=== PATIENT | female | born 1975 ===

== ENCOUNTER 2020-09-04 17:02 | Inpatient (IN) ==
--- NOTE | 2020-09-04 19:55 | Emergency Department Note ---
History of Present Illness General Chief complaint: Illness Stated complaint: Covid Positive, SOB Time Seen by Provider: 09/04/20 19:32 Source: patient Mode of arrival: ambulatory Limitations: no limitations History of Present Illness Provider complaint: Shortness of breath This is a 45-year-old female who presents to the ED with a chief complaint of shortness of breath. The patient was seen 3 days ago by myself as well. The patient reports increased shortness of breath since she was seen last time. She also reports a dry cough and some dizziness. She does have a history of asthma. She was diagnosed with Covid 6 days ago and has had symptoms for about 9 days. She is currently taking prednisone 50 mg daily as well as a Z-Wayne and she has nebulizers at home and has been using them regularly. The patient reports that she did not have a fever a couple of days ago but yesterday and today she did have fevers as high as 101.5. She states that she is lost her smell but her taste is still mostly present. She denies any nausea, vomiting or diarrhea. Denies any pain or swelling in the legs. She works as a internal medicine physician locally. Home Medications Medication Instructions Recorded Confirmed Type albuterol sulfate 1 inh INHALATION Q4H PRN 09/01/20 09/04/20 History ascorbic acid (vitamin C) [Vitamin 100 mg PO QDD 09/01/20 09/04/20 History C] cetirizine [Zyrtec] 10 mg PO QAM 09/01/20 09/04/20 History fluticasone propion-salmeterol 1 inh INHALATION BID 09/01/20 09/04/20 History [Advair Diskus] montelukast [Singulair] 10 mg PO HS 09/01/20 09/04/20 History multivitamin 1 tab PO QDD 09/01/20 09/04/20 History zinc 0 mg PO QDD 09/01/20 09/04/20 History acetaminophen [Tylenol Extra 500 mg PO Q6H PRN 09/04/20 09/04/20 History Strength] azithromycin 250 mg PO .DAILY/UD 09/04/20 09/04/20 History prednisone 0 mg PO .DAILY/UD 09/04/20 09/04/20 History Allergies Allergy/AdvReac Type Severity Reaction Status Date / Time shrimp Allergy Rash Unverified 09/04/20 23:31 Past Med/Surg History Social History Smoking Status: Never smoker Preferred Language: Albanian Feels Safe at Home: Yes Review of Systems A total of 10 systems reviewed and were otherwise negative Physical Exam Vital Signs Vital Signs - 24 hr 09/04/20 17:20 09/04/20 20:28 09/04/20 20:30 Temperature 37.4 C Temperature Source Temporal Artery Scan Pulse Rate 87 79 81 Pulse Rate [Right Finger] Pulse Rate from SpO2 Sensor 81 81 Pulse Rhythm [Right Finger] Respiratory Rate 16 21 16 Respiratory Effort / Characteristics Non-Labored Respiratory Depth Normal Blood Pressure 132/88 Blood Pressure [Left Arm] Blood Pressure Mean 102 Blood Pressure Mean [Left Arm] Pulse Oximetry 97 97 97 Oxygen Delivery Method Room Air Sepsis Recent Fever Within 48 Hours Yes Sepsis New/Unexplained Change in Mental Status No Sepsis Action Taken by Nursing No Action Required 09/04/20 21:00 09/04/20 21:24 09/04/20 21:30 Temperature Temperature Source Pulse Rate 72 75 78 Pulse Rate [Right Finger] Pulse Rate from SpO2 Sensor 73 79 78 Pulse Rhythm [Right Finger] Respiratory Rate 18 21 23 Respiratory Effort / Characteristics Respiratory Depth Blood Pressure 128/80 125/76 Blood Pressure [Left Arm] Blood Pressure Mean 95 95 Blood Pressure Mean [Left Arm] Pulse Oximetry 98 97 97 Oxygen Delivery Method Sepsis Recent Fever Within 48 Hours Sepsis New/Unexplained Change in Mental Status Sepsis Action Taken by Nursing 09/05/20 00:36 Temperature 37.2 C Temperature Source Oral Pulse Rate Pulse Rate [Right Finger] 68 Pulse Rate from SpO2 Sensor Pulse Rhythm [Right Finger] Regular Respiratory Rate 16 Respiratory Effort / Characteristics Respiratory Depth Normal Blood Pressure Blood Pressure [Left Arm] 135/78 Blood Pressure Mean Blood Pressure Mean [Left Arm] 97 Pulse Oximetry 96 Oxygen Delivery Method Room Air Sepsis Recent Fever Within 48 Hours Sepsis New/Unexplained Change in Mental Status Sepsis Action Taken by Nursing CONSTITUTIONAL/VITAL SIGNS: Reviewed / noted above. GENERAL: Non-toxic in appearance. INTEGUMENTARY: Warm, dry, and Radium. HEAD: Normocephalic. EYES: without scleral icterus or trauma. ENT/OROPHARYNX: No complaints. LYMPHADENOPATHY/NECK: Is supple. RESPIRATORY: Lungs clear and equal. End expiratory wheezing similar to or slightly better than when I examined her previously. CARDIOVASCULAR: Regular rate and rhythm. GI/ABDOMEN: No complaints. EXTREMITIES: No pain or swelling in the legs. NEUROLOGICAL: Intact without focal deficits. PSYCHIATRIC: normal affect. MUSCULOSKELETAL: Normally developed with good muscle tone. TRIAGE NURSING DOCUMENTATION REVIEWED. Course Administered Medications Discontinued Medications Dexamethasone Sodium Phosphate (6 mg/ Syringe) 1.5 mls @ 1 mls/min IV NOW STA Stop: 09/04/20 23:59 Last Admin: 09/05/20 00:31 Dose: 1 mls/min Documented by: [id number] Ioversol (Optiray 320 125ml) 119 ml IV ONCE ONE Stop: 09/04/20 21:57 Last Admin: 09/04/20 22:41 Dose: Not Given Documented by: [id number] Ioversol (Optiray 320 125ml) 119 ml IV ONCE ONE Stop: 09/04/20 22:07 Last Admin: 09/04/20 22:06 Dose: 119 ml Documented by: [id number] Medical Decision Making Differential Diagnosis The differential was considered includes acute myocardial infarction, acute coronary syndrome, myocarditis, pericarditis, pericardial effusions /tamponad, esophageal perforation, pulmonary embolism, pneumonia, pneumothorax, cardiomyopathy, congestive heart, anemia , COPD/asthma exacerbation. Medical Records Attestation: I reviewed the patient's medical records. Home Medications Current Medication List: was personally reviewed by me Laboratory Data Attestation: I reviewed the patient's lab results. Result diagrams: 09/04/20 20:08 09/04/20 20:08 Lab Results 09/04/20 09/04/20 09/04/20 Range/Units 20:08 20:08 20:08 WBC 6.24 (4.8-10.8) K/uL RBC 4.02 L (4.2-5.4) M/uL Hgb 13.0 (12.0-16.0) g/dL Hct 40.0 (37-47) % MCV 99.5 (80-100) fL MCH 32.3 (25-34) pg MCHC 32.5 (32-36) g/dL RDW Std Deviation 46.5 H (36.4-46.3) fL RDW Coeff of Marcellus 12.7 (11.5-14.5) % Plt Count 222 (130-400) K/uL MPV 11.2 H (7.4-10.4) fL Immature Gran % (Auto) 0.6 % Neut % (Auto) 87.3 % Lymph % (Auto) 7.9 % [place] % (Auto) 4.2 % Eos % (Auto) 0.0 % Baso % (Auto) 0.0 % Neut # (Auto) 5.45 (1.4-6.5) K/uL Lymph # (Auto) 0.49 L (1.2-3.4) K/uL [place] # (Auto) 0.26 (0.11-0.59) K/uL Eos # (Auto) 0.00 (0-0.5) K/uL Baso # (Auto) 0.00 (0-0.2) K/uL Immature Gran # (Auto) 0.04 H (0.00-0.02) K/uL ESR 26 H (0-21) mm/hr PT 9.7 (9.0-12.0) Seconds INR 0.9 (0.9-1.1) APTT 26.7 (21.0-31.0) Seconds PTT Ratio 1.0 D-Dimer < 190 (0-500) ug/L FEU Sodium (136-145) mmol/L Potassium (3.5-5.1) mmol/L Chloride (98-107) mmol/L Carbon Dioxide (21-32) mmol/L Anion Gap (3-11) BUN (7-18) mg/dl Creatinine (0.6-1.2) mg/dl Est Cr Clr Drug Dosing Est GFR ( Amer) Est GFR (Non-Af Amer) BUN/Creatinine Ratio (10-20) Glucose (70-99) mg/dl Calcium (8.5-10.1) mg/dl Magnesium (1.8-2.4) mg/dl Ferritin (8-388) ng/ml Total Bilirubin (0.2-1) mg/dl AST (15-37) U/L ALT (12-78) U/L Alkaline Phosphatase (45-117) U/L Lactate Dehydrogenase (84-246) U/L Troponin I (0-0.045) ng/ml C-Reactive Protein (0-0.29) mg/dl NT-Pro-B Natriuret Pep (0-450) pg/ml Total Protein (6.4-8.2) gm/dl Albumin (3.4-5.0) gm/dl Globulin (2.5-4.0) gm/dl Albumin/Globulin Ratio (0.9-2) Procalcitonin (0-0.5) ng/ml 09/04/20 09/04/20 09/04/20 Range/Units 20:08 20:08 20:08 WBC (4.8-10.8) K/uL RBC (4.2-5.4) M/uL Hgb (12.0-16.0) g/dL Hct (37-47) % MCV (80-100) fL MCH (25-34) pg MCHC (32-36) g/dL RDW Std Deviation (36.4-46.3) fL RDW Coeff of Marcellus (11.5-14.5) % Plt Count (130-400) K/uL MPV (7.4-10.4) fL Immature Gran % (Auto) % Neut % (Auto) % Lymph % (Auto) % [place] % (Auto) % Eos % (Auto) % Baso % (Auto) % Neut # (Auto) (1.4-6.5) K/uL Lymph # (Auto) (1.2-3.4) K/uL [place] # (Auto) (0.11-0.59) K/uL Eos # (Auto) (0-0.5) K/uL Baso # (Auto) (0-0.2) K/uL Immature Gran # (Auto) (0.00-0.02) K/uL ESR (0-21) mm/hr PT (9.0-12.0) Seconds INR (0.9-1.1) APTT (21.0-31.0) Seconds PTT Ratio D-Dimer (0-500) ug/L FEU Sodium 140 (136-145) mmol/L Potassium 4.1 (3.5-5.1) mmol/L Chloride 106 (98-107) mmol/L Carbon Dioxide 28 (21-32) mmol/L Anion Gap 6.0 (3-11) BUN 15 (7-18) mg/dl Creatinine 0.64 (0.6-1.2) mg/dl Est Cr Clr Drug Dosing Not Reportable Est GFR ( Amer) 125.8 Est GFR (Non-Af Amer) 108.5 BUN/Creatinine Ratio 23.8 H (10-20) Glucose 200 H (70-99) mg/dl Calcium 8.9 (8.5-10.1) mg/dl Magnesium 2.1 (1.8-2.4) mg/dl Ferritin 141.6 (8-388) ng/ml Total Bilirubin 0.3 (0.2-1) mg/dl AST 21 (15-37) U/L ALT 33 (12-78) U/L Alkaline Phosphatase 51 (45-117) U/L Lactate Dehydrogenase 177 (84-246) U/L Troponin I < 0.015 (0-0.045) ng/ml C-Reactive Protein 2.13 H (0-0.29) mg/dl NT-Pro-B Natriuret Pep 65 (0-450) pg/ml Total Protein 7.1 (6.4-8.2) gm/dl Albumin 3.3 L (3.4-5.0) gm/dl Globulin 3.8 (2.5-4.0) gm/dl Albumin/Globulin Ratio 0.9 (0.9-2) Procalcitonin < 0.05 (0-0.5) ng/ml Imaging Data Radiologist's Impression: CT scan of the chest: Per radiology stat rad: Scattered areas of faint groundglass infiltrate with rounded margins in the mid and lower lungs bilaterally consistent with mild COVID-19 pneumonia. ECG Data Attestation: I personally reviewed and interpreted this ECG as follows: Indication: + SOB/dyspnea Rate (beats per minute): 71 Rhythm: + normal sinus ECG Intervals/blocks: + Normal QT-c ECG ST segments: no ST elevation ECG Findings: no PVCs MDM Narrative The patient is a known Covid positive patient for at least the past 9 days with symptoms. She presents with increased shortness of breath today as well as a dry cough and some dizziness and states that her symptoms are worse than her previous visit 3 days ago. She has had some fevers in the past couple of days as detailed above. Her vital signs here are normal. Pulse ox was 97% on room air. Exam revealed some mild end expiratory scattered wheezes bilaterally. Twelve-lead EKG shows a normal sinus rhythm at a rate of 71 without acute injury pattern or ectopy. CBC did not show anemia or leukocytosis. Sed rate was elevated at 26. D-dimer was negative. Chemistry panel showed a glucose of 200. Otherwise unremarkable. Troponin was negative. C-reactive protein was 2.13. Procalcitonin was negative. CT scan of the chest:Reveals findings consistent with mild COVID-19 pneumonia with bilateral groundglass infiltrates in the lower lobes.The patient will be seen by the hospitalist for further evaluation and care. Impression & Plan COVID-19, Bilateral interstitial pneumonia Discharge Plan Visit Data Chief Complaint: Illness Stated Complaint: Covid Positive, SOB ED Provider: Mak Quesada Discharge Problem: COVID-19, Bilateral interstitial pneumonia Patient Disposition: Being Evaluated by Hospitalist Forms [facility] Prescriptions Prescriptions: No Action azithromycin 250 mg tablet 250 mg PO .DAILY/UD RF: 0 prednisone 10 mg tablet 0 mg PO .DAILY/UD RF: 0 acetaminophen [Tylenol Extra Strength] 500 mg Tablet 500 mg PO Q6H PRN (Reason: Pain) RF: 0 cetirizine [Zyrtec] 10 mg Tablet 10 mg PO QAM RF: 0 multivitamin Tablet 1 tab PO QDD RF: 0 ascorbic acid (vitamin C) [Vitamin C] 500 mg Tablet 100 mg PO QDD RF: 0 fluticasone propion-salmeterol [Advair Diskus] 500-50 mcg/dose Blister With Device 1 inh INHALATION BID RF: 0 montelukast [Singulair] 10 mg Tablet 10 mg PO HS RF: 0 zinc 50 mg Tablet 0 mg PO QDD RF: 0 albuterol sulfate 90 mcg/actuation Hfa Aerosol Inhaler 1 inh INHALATION Q4H PRN (Reason: Shortness Of Breath) RF: 0 Referrals Referrals: Greta Serrano MD [Primary Care Provider] -
[2020-09-04 20:37] LABS: Immature Granulocytes # (auto) 0.04 K/uL (0.00-0.02); Immature Granulocytes % (auto) 0.6 %; Lymphocytes # (auto) 0.49 K/uL (1.2-3.4); Lymphocytes % (auto) 7.9 %; Mean Corpuscular Hemoglobin 32.3 pg (25-34); Mean Corpuscular Hgb Conc 32.5 g/dL (32-36); Mean Corpuscular Volume 99.5 fL (80-100); Mean Platelet Volume 11.2 fL (7.4-10.4); Monocytes # (auto) 0.26 K/uL (0.11-0.59); Monocytes % (auto) 4.2 %; Neutrophils # (auto) 5.45 K/uL (1.4-6.5); Neutrophils % (auto) 87.3 %; Platelet Count 222 K/uL (130-400); RDW Coefficient of Variation 12.7 % (11.5-14.5); RDW Standard Deviation 46.5 fL (36.4-46.3); Red Blood Count 4.02 M/uL (4.2-5.4); White Blood Count 6.24 K/uL (4.8-10.8)
[2020-09-04 20:51] LABS: D Dimer < 190 ug/L FEU (0-500); INR 0.9 (0.9-1.1); Partial Thromboplastin Time 26.7 Seconds (21.0-31.0); Prothrombin Time 9.7 Seconds (9.0-12.0)
[2020-09-04 20:54] LABS: Alanine Aminotransferase 33 U/L (12-78); Albumin Level 3.3 gm/dl (3.4-5.0); Aspartate Aminotransferase 21 U/L (15-37); BUN Creatinine Ratio 23.8 (10-20); Blood Urea Nitrogen 15 mg/dl (7-18); Calcium 8.9 mg/dl (8.5-10.1); Carbon Dioxide 28 mmol/L (21-32); Chloride 106 mmol/L (98-107); Est GFR (African American) 125.8; Est GFR (Non-African American) 108.5; Glucose 200 mg/dl (70-99); Potassium 4.1 mmol/L (3.5-5.1); Sodium 140 mmol/L (136-145)
[2020-09-04 20:59] LABS: Albumin Globulin Ratio 0.9 (0.9-2); Alkaline Phosphatase 51 U/L (45-117); Bilirubin,Total 0.3 mg/dl (0.2-1); C Reactive Protein 2.13 mg/dl (0-0.29); Ferritin 141.6 ng/ml (8-388); Globulin 3.8 gm/dl (2.5-4.0); NT Pro B Type Natriuretic Pept 65 pg/ml (0-450); Total Protein 7.1 gm/dl (6.4-8.2); Troponin I < 0.015 ng/ml (0-0.045)
[2020-09-04] MEDS ORDERED: OPTIRAY 320 125ml IV ONE ×2 (21:56→22:06)
[2020-09-04] MEDS ORDERED: DEXAMETHASONE SOD PHOSPHATE 6 MG in SYRINGE 0 ML IV STA (23:58)
[2020-09-05] MEDS ORDERED: LACTATED RINGER'S 1,000 ML IV ONE (00:09)
[2020-09-05 00:23] LABS: Magnesium 2.1 mg/dl (1.8-2.4)
[2020-09-05] MEDS ORDERED: ACETAMINOPHEN 325 MG TAB PO PRN (03:04)
[2020-09-05] MEDS ORDERED: MAGNESIUM SULFATE / D5W 1 GM/100 ML BAG IV ONE (03:04)
[2020-09-05] MEDS ORDERED: traMADol HCL 50 MG TABLET PO PRN (03:04)
[2020-09-05] MEDS ORDERED: PROMETHAZINE HCL 6.25 MG in SODIUM CHLORIDE 0.9% 50 ML IV PRN (03:04)
[2020-09-05] MEDS: guaiFENesin 600 MG TABCR PO SCH ×3 (03:48→20:21)
[2020-09-05] MEDS: ALBUTEROL HFA 8 GM INHALER INH SCH ×6 (04:18→22:25)
[2020-09-05 06:04] LABS: Estimated Average Glucose 131 mg/dl; Hemoglobin A1C 6.2 % (4.5-5.6)
[2020-09-05 06:34] LABS: Basophils # (auto) 0.01 K/uL (0-0.2); Basophils % (auto) 0.1 %; Hematocrit (blood only) 40.3 % (37-47); Hemoglobin 13.2 g/dL (12.0-16.0); Immature Granulocytes # (auto) 0.04 K/uL (0.00-0.02); Immature Granulocytes % (auto) 0.5 %; Lymphocytes # (auto) 0.82 K/uL (1.2-3.4); Mean Corpuscular Hemoglobin 32.2 pg (25-34); Mean Corpuscular Hgb Conc 32.8 g/dL (32-36); Mean Corpuscular Volume 98.3 fL (80-100); Mean Platelet Volume 10.9 fL (7.4-10.4); Monocytes # (auto) 0.27 K/uL (0.11-0.59); Monocytes % (auto) 3.6 %; Neutrophils # (auto) 6.34 K/uL (1.4-6.5); Neutrophils % (auto) 84.8 %; Platelet Count 228 K/uL (130-400); RDW Coefficient of Variation 12.6 % (11.5-14.5); RDW Standard Deviation 45.4 fL (36.4-46.3); White Blood Count 7.48 K/uL (4.8-10.8)
--- NOTE | 2020-09-05 06:55 | CT Scan Report ---
CT angio chest PE protocol CT DOSE: 178.92 mGycm HISTORY: 45 years-old Female with Dyspnea, COVID +. Acute shortness of breath. COVID Positive. TECHNIQUE: Multiple CTA images of the chest were obtained after the intravenous administration of 119 ml Optiray 320. Coronal and sagittal MIPS were obtained from the axial data set and were submitted for review. All measurements were obtained according to NASCET criteria. A dose lowering technique w as utilized adhering to the principles of ALARA. COMPARISON: Chest radiograph 09/01/2020 FINDINGS: CTA: Heart is normal in size. Trace pericardial effusion. There is no thoracic aortic aneurysm or dissecti on. There is patency of the imaged great vessels. The pulmonary arterial tree is opacified to the lev el of the subsegmental branches and demonstrates no filling defects to suggest thromboembolic disease . CT CHEST: Unremarkable thyroid. 12 mm enlarged right hilar lymph node is present along with prominent left delano r and subcarinal lymph nodes are likely reactive. Trace pleural effusions. No pneumothorax. Mild mult ilobar subpleural and bibasilar predominant groundglass opacities are noted bilaterally. Central airw ays are patent. No overt pulmonary edema. Mild nonspecific distal esophageal wall thickening. The breast parenchyma and soft tissues appear unr emarkable. Bones appear intact. There is no acute fracture. IMPRESSION: 1. No evidence of pulmonary thromboembolic disease. 2. Mild subpleural and bibasilar predominate groundglass opacities are compatible with an infectious or inflammatory pneumonitis such as viral pneumonia. 3. Prominent left hilar and subcarinal with mildly enlarged right hilar adenopathy, likely reactive. 4. Trace pleural and pericardial effusions. ACT 112: Negative or not required by law. The above report was generated using voice recognition software. It may contain grammatical, syntax o r spelling errors. Electronically signed by: Perfecto Plummer M.D. 09/05/2020 6:54 AM
[2020-09-05 07:06] LABS: Alanine Aminotransferase 32 U/L (12-78); Albumin Globulin Ratio 0.8 (0.9-2); Albumin Level 3.1 gm/dl (3.4-5.0); Alkaline Phosphatase 47 U/L (45-117); Aspartate Aminotransferase 18 U/L (15-37); BUN Creatinine Ratio 17.6 (10-20); Bilirubin,Total 0.3 mg/dl (0.2-1); Blood Urea Nitrogen 10 mg/dl (7-18); C Reactive Protein 2.58 mg/dl (0-0.29); Calcium 8.7 mg/dl (8.5-10.1); Carbon Dioxide 29 mmol/L (21-32); Chloride 107 mmol/L (98-107); Creatine Kinase 66 U/L (26-192); Est GFR (Non-African American) 114.8; Ferritin 146.4 ng/ml (8-388); Globulin 3.7 gm/dl (2.5-4.0); Glucose 187 mg/dl (70-99); Sodium 139 mmol/L (136-145); Total Protein 6.9 gm/dl (6.4-8.2)
[2020-09-05] MEDS: CETIRIZINE HCL 10 MG TABLET PO SCH (08:32)
[2020-09-05] MEDS ORDERED: FLUTICASONE/VILANTEROL 100/25MCG 14 PUFFS/INHALER INH SCH (09:00)
[2020-09-05] MEDS ORDERED: ENOXAPARIN INJ 30 MG/0.3 ML SYR SQ SCH (09:00)
[2020-09-05] MEDS ORDERED: predniSONE 10 MG TABLET PO SCH (09:00)
--- NOTE | 2020-09-05 09:16 | History & Physical Report ---
Date of Service September 05, 2020 Assessment & Plan (1) SOB (shortness of breath): Persistent asthma exacerbation hx COVID-19 pneumonia Status post Z-Wayne Rx Ongoing prednisone Rx Currently not septic or toxic looking Patient currently not hypoxemic but with episodic tachypnea during examination. Steroid-induced hyperglycemia rule out DM OBS Medical telemetry Decadron 1 dose for now Continue prednisone taper No indication for Remdesivir for now. MDI RTC Pulmonary consult if with worsening symptoms Check hemoglobin A1c DVT prophylaxis per Lovenox subcu Full code Text document was generated using [employer] voice recognition software. It may contain grammatical or spelling errors. Kindly contact undersigned for clarification of any documentation item in question. Admission and Anticipated Discharge Date Admission Date: September 05, 2020 History of Present Illness Chief Complaint: Shortness of breath Primary Care Provider: Greta Serrano MD History obtained from patient and records. Medical history significant for bronchial asthma. 10 days ago, patient noted dry cough symptoms, shortness of breath, headache, fatigue, loss of taste, and low-grade fever at home symptoms. Physician COVID 19 positive was staying outside their home. Patient's outpatient COVID-19 swab later noted to be positive. Patient requested for Z-Wayne and prednisone prescription from PCP for asthma exacerbation. Patient seen at the ER 3 days ago for worsening symptoms. Subsequently sent home. At home, patient noted worsening shortness of breath without chest pain. Incessant cough persistently dry. Patient returned to the ER last night. Currently uncomfortable going home. Medical History as above Surgical History : Dental surgery Family History : Diabetes, asthma Personal/Social history : Non-smoker, occasional EtOH intake, physician Allergies Allergy/AdvReac Type Severity Reaction Status Date / Time shrimp Allergy Rash Unverified 09/04/20 23:31 Home Medications Medication Instructions Recorded Confirmed Type albuterol sulfate 1 inh INHALATION Q4H PRN 09/01/20 09/04/20 History ascorbic acid (vitamin C) [Vitamin 100 mg PO QDD 09/01/20 09/04/20 History C] cetirizine [Zyrtec] 10 mg PO QAM 09/01/20 09/04/20 History fluticasone propion-salmeterol 1 inh INHALATION BID 09/01/20 09/04/20 History [Advair Diskus] montelukast [Singulair] 10 mg PO HS 09/01/20 09/04/20 History multivitamin 1 tab PO QDD 09/01/20 09/04/20 History zinc 0 mg PO QDD 09/01/20 09/04/20 History acetaminophen [Tylenol Extra 500 mg PO Q6H PRN 09/04/20 09/04/20 History Strength] azithromycin 250 mg PO .DAILY/UD 09/04/20 09/04/20 History prednisone 0 mg PO .DAILY/UD 09/04/20 09/04/20 History Past Med/Surg History Social History Smoking Status: Never smoker Hx Alcohol Use: No Hx Substance Use: No Preferred Language: Swedish Beliefs That Will Affect Care: None Current Living Situation: Spouse Other Information That Helps Us Care for You: No Feels Safe at Home: Yes Safety Concerns: Feels Safe At This Time Review of Systems Review of Systems: As per HPI, all 10 systems reviewed, all other ROS negative Physical Exam Physical Exam: GENERAL: uncomfortable, pleasant, episodic tachypnea SKIN: Normal color, warm HEENT: Peck palpebral conjunctivae, no ptosis, dry buccal mucosa NECK : Supple, no tenderness CHEST : CTA, no tenderness HEART : RRR, no obvious murmurs ABDOMEN: Some distention, nontender EXTREMITIES : No LE swelling/tenderness, no other conspicuous deformities noted NEUROLOGIC : Coherent, no facial asymmetry, no other gross focality Results & Data Results & Data ([facility]) Vital Signs (Past 12 Hours) Vital Signs Temp Pulse Pulse Resp BP BP Pulse Ox 09/05/20 08:15 37.0 C 71 18 131/81 09/05/20 07:36 69 18 95 09/05/20 07:00 63 09/05/20 03:04 37.1 C 90 63 18 120/72 96 09/05/20 02:37 68 18 96 09/05/20 00:36 37.2 C 68 16 135/78 96 09/04/20 21:30 78 23 125/76 97 09/04/20 21:24 75 21 128/80 97 Laboratory Results 09/04/20 09/04/20 09/04/20 20:08 20:08 20:08 WBC 6.24 RBC 4.02 L Hgb 13.0 Hct 40.0 MCV 99.5 MCH 32.3 MCHC 32.5 RDW Std Deviation 46.5 H RDW Coeff of Marcellus 12.7 Plt Count 222 MPV 11.2 H Immature Gran % (Auto) 0.6 Neut % (Auto) 87.3 Lymph % (Auto) 7.9 [place] % (Auto) 4.2 Eos % (Auto) 0.0 Baso % (Auto) 0.0 Neut # (Auto) 5.45 Lymph # (Auto) 0.49 L [place] # (Auto) 0.26 Eos # (Auto) 0.00 Baso # (Auto) 0.00 Immature Gran # (Auto) 0.04 H ESR 26 H PT 9.7 INR 0.9 APTT 26.7 PTT Ratio 1.0 D-Dimer < 190 Sodium Potassium Chloride Carbon Dioxide Anion Gap BUN Creatinine Est Cr Clr Drug Dosing Est GFR ( Amer) Est GFR (Non-Af Amer) BUN/Creatinine Ratio Glucose Estimat Average Glucose Hemoglobin A1c Calcium Magnesium Ferritin Total Bilirubin AST ALT Alkaline Phosphatase Lactate Dehydrogenase Total Creatine Kinase Troponin I C-Reactive Protein NT-Pro-B Natriuret Pep Total Protein Albumin Globulin Albumin/Globulin Ratio Procalcitonin 09/04/20 09/04/20 09/04/20 20:08 20:08 20:08 WBC RBC Hgb Hct MCV MCH MCHC RDW Std Deviation RDW Coeff of Marcellus Plt Count MPV Immature Gran % (Auto) Neut % (Auto) Lymph % (Auto) [place] % (Auto) Eos % (Auto) Baso % (Auto) Neut # (Auto) Lymph # (Auto) [place] # (Auto) Eos # (Auto) Baso # (Auto) Immature Gran # (Auto) ESR PT INR APTT PTT Ratio D-Dimer Sodium 140 Potassium 4.1 Chloride 106 Carbon Dioxide 28 Anion Gap 6.0 BUN 15 Creatinine 0.64 Est Cr Clr Drug Dosing Not Reportable Est GFR ( Amer) 125.8 Est GFR (Non-Af Amer) 108.5 BUN/Creatinine Ratio 23.8 H Glucose 200 H Estimat Average Glucose Hemoglobin A1c Calcium 8.9 Magnesium 2.1 Ferritin 141.6 Total Bilirubin 0.3 AST 21 ALT 33 Alkaline Phosphatase 51 Lactate Dehydrogenase 177 Total Creatine Kinase Troponin I < 0.015 C-Reactive Protein 2.13 H NT-Pro-B Natriuret Pep 65 Total Protein 7.1 Albumin 3.3 L Globulin 3.8 Albumin/Globulin Ratio 0.9 Procalcitonin < 0.05 09/04/20 09/05/20 09/05/20 20:08 06:06 06:06 WBC 7.48 RBC 4.10 L Hgb 13.2 Hct 40.3 MCV 98.3 MCH 32.2 MCHC 32.8 RDW Std Deviation 45.4 RDW Coeff of Marcellus 12.6 Plt Count 228 MPV 10.9 H Immature Gran % (Auto) 0.5 Neut % (Auto) 84.8 Lymph % (Auto) 11.0 [place] % (Auto) 3.6 Eos % (Auto) 0.0 Baso % (Auto) 0.1 Neut # (Auto) 6.34 Lymph # (Auto) 0.82 L [place] # (Auto) 0.27 Eos # (Auto) 0.00 Baso # (Auto) 0.01 Immature Gran # (Auto) 0.04 H ESR 31 H PT INR APTT PTT Ratio D-Dimer Sodium Potassium Chloride Carbon Dioxide Anion Gap BUN Creatinine Est Cr Clr Drug Dosing Est GFR ( Amer) Est GFR (Non-Af Amer) BUN/Creatinine Ratio Glucose Estimat Average Glucose 131 Hemoglobin A1c 6.2 H Calcium Magnesium Ferritin Total Bilirubin AST ALT Alkaline Phosphatase Lactate Dehydrogenase Total Creatine Kinase Troponin I C-Reactive Protein NT-Pro-B Natriuret Pep Total Protein Albumin Globulin Albumin/Globulin Ratio Procalcitonin 09/05/20 09/05/20 09/05/20 06:06 06:06 06:06 WBC RBC Hgb Hct MCV MCH MCHC RDW Std Deviation RDW Coeff of Marcellus Plt Count MPV Immature Gran % (Auto) Neut % (Auto) Lymph % (Auto) [place] % (Auto) Eos % (Auto) Baso % (Auto) Neut # (Auto) Lymph # (Auto) [place] # (Auto) Eos # (Auto) Baso # (Auto) Immature Gran # (Auto) ESR PT INR APTT PTT Ratio D-Dimer Sodium 139 Potassium 4.0 Chloride 107 Carbon Dioxide 29 Anion Gap 3.0 BUN 10 D Creatinine 0.54 L Est Cr Clr Drug Dosing Not Reportable Est GFR ( Amer) 133.0 Est GFR (Non-Af Amer) 114.8 BUN/Creatinine Ratio 17.6 Glucose 187 H Estimat Average Glucose Hemoglobin A1c Calcium 8.7 Magnesium Ferritin 146.4 Total Bilirubin 0.3 AST 18 ALT 32 Alkaline Phosphatase 47 Lactate Dehydrogenase 183 Total Creatine Kinase 66 Troponin I C-Reactive Protein 2.58 H NT-Pro-B Natriuret Pep Total Protein 6.9 Albumin 3.1 L Globulin 3.7 Albumin/Globulin Ratio 0.8 L Procalcitonin < 0.[address] chest initial read: No pulmonary emboli. Heart is not enlarged. No pericardial effusion. Scattered areas of faint groundglass infiltrate with rounded margins in the mid to lower lungs bilaterally consistent with mild COVID-19 pneumonia. EKG as per my interpretation: Rate 80, NSR, normal axis, ST depression inferior leads,
[2020-09-05] MEDS: FLUTICASONE/VILANTEROL 200/25MCG 14 PUFFS/INHALER INH SCH (09:35)
[2020-09-05] MEDS ORDERED: POLYETHYLENE (MIRALAX) 17 GM PACK PO PRN (09:41)
[2020-09-05] MEDS ORDERED: BENZONATATE 100 MG CAPSULE PO PRN (09:41)
[2020-09-05] MEDS ORDERED: SODIUM CHLORIDE 0.9% 1000ML 1,000 ML IV SCH (09:45)
[2020-09-05] MEDS ORDERED: REMDESIVIR 200 MG in SODIUM CHLORIDE 0.9% 210 ML IV ONE (10:30)
[2020-09-05] MEDS: AZITHROMYCIN 250 MG TAB PO SCH (11:04)
[2020-09-05] MEDS: ASCORBIC ACID 500 MG TAB PO SCH (11:04)
[2020-09-05] MEDS: PSYLLIUM 58.6% POWDER PACKET PO SCH (11:06)
[2020-09-05] MEDS: SODIUM CHLORIDE 0.9% 10ML FLUSH IV SCH (13:47)
[2020-09-05] MEDS: DEXAMETHASONE SOD PHOSPHATE 6 MG in SYRINGE 0 ML IV SCH (13:48)
--- NOTE | 2020-09-05 14:44 | Electrocardiogram Report ---
Test Reason : Blood Pressure : / mmHG Vent. Rate : 078 BPM Atrial Rate : 078 BPM P-R Int : 206 ms QRS Dur : 098 ms QT Int : 362 ms P-R-T Axes : 013 050 019 degrees QTc Int : 412 ms Poor data quality, interpretation may be adversely affected Normal sinus rhythm Nonspecific ST abnormality Abnormal ECG When compared with ECG of 01-SEP-2020 16:48, ST now depressed in Inferior leads Non-specific change in ST segment in Anterior leads Confirmed by Preston Cr ([id number]) on 09/05/2020 2:44:07 PM Referred By: Greta Serrano Confirmed By:Preston Cr
--- NOTE | 2020-09-05 14:46 | Electrocardiogram Report ---
Test Reason : Blood Pressure : / mmHG Vent. Rate : 071 BPM Atrial Rate : 071 BPM P-R Int : 186 ms QRS Dur : 092 ms QT Int : 398 ms P-R-T Axes : 044 054 046 degrees QTc Int : 432 ms Normal sinus rhythm Normal ECG When compared with ECG of 04-SEP-2020 20:22, (unconfirmed) ST no longer depressed in Inferior leads ST no longer elevated in Lateral leads Confirmed by Preston Cr ([id number]) on 09/05/2020 2:45:50 PM Referred By: Greta Serrano Confirmed By:Preston Cr
[2020-09-05] MEDS ORDERED: ASCORBIC ACID 500 MG TAB PO SCH (16:30)
[2020-09-05] MEDS: ZINC SULFATE 220 MG CAPSULE PO SCH (17:31)
[2020-09-05] MEDS: MULTIVITAMIN TAB PO SCH (17:32)
[2020-09-05] MEDS: MONTELUKAST SODIUM 10 MG TABLET PO SCH (20:21)
--- NOTE | 2020-09-05 21:28 | Hospitalist Progress Note ---
Date of Service September 05, 2020 Assessment & Plan (1) Pneumonia due to COVID-19 virus: COVID-19 pneumonia, with mild-moderate acute asthma exacerbation --CT chest: 1. No evidence of pulmonary thromboembolic disease. 2. Mild subpleural and bibasilar predominate groundglass opacities are comp atible with an infectious or inflammatory pneumonitis such as viral pneumonia. 3. Prominent left hilar and subcarinal with mildly enlarged right hilar adenopathy, likely reactive. 4. Trace pleural and pericardial effusions. --D-dimer negative ESR 26 CRP 2.5 --Patient symptoms including shortness of breath and cough, malaise has been progressive since onset of symptoms despite outpatient treatment with prednisone and Z-Wayne Currently saturating 95% on room air --Remdesivir day number 1 out of 5 started today Continue Decadron day 2 out of 10 Convalescent plasma not offered as patient is now several days since onset of symptoms Lovenox 40 mg subcutaneous for DVT prophylaxis --Albuterol every 4 hours, Breo daily --Incentive spirometry, flutter valve, Mucinex, as needed Tessalon Perles --Daily CBC, PRP, LFTs, ESR and CRP Constipation --Metamucil, as needed MiraLAX Disposition Pending anticipate discharge to home when medically stable Admission and Anticipated Discharge Date Admission Date: September 05, 2020 Subjective Follow-up for COVID-19 pneumonia, asthma exacerbation Seen resting in bed, sitting up, not in distress but appears weak and speaks in sentences with some effort States her breathing is about the same as yesterday, still has frequent dry c ough Still feels on the weak side, appetite is fair No chest pain, headache, abdominal pain, nausea, diarrhea Review of Systems Review of Systems: All systems reviewed & are unremarkable except as noted in Subjective Physical Exam Physical Exam: General- oriented x 3, not in distress, speaks in sentences with no effort or accessory muscle use Head- atraumatic Eyes- PERRL, EOMI, anicteric ENT- oropharynx clear Neck- supple, no JVD, no adenopathy, no thyromegaly; carotids +2/2, no bruits appreciated Lungs-positive mild wheeze bilaterally, left greater than the right, no crackles Heart- normal rate, regular rhythm; no murmur, no gallop, no rub appreciated Abdomen- normal bowel sounds, nondistended, soft, nontender, no masses or hepatosplenomegaly Extremities- no pretibial edema, no calf tenderness; peripheral pulses intact Neuro- alert, oriented x 3; CN 2-12 grossly intact; motor 5/5 bilaterally;sensation 100% on all extremities; no other gross focal neurologic deficits Skin- warm & dry Results & Data Results & Data ([facility]) Vital Signs (Past 12 Hours) Vital Signs Temp Pulse Pulse Resp BP Pulse Ox 09/05/20 20:23 81 18 96 09/05/20 19:03 76 09/05/20 18:49 76 09/05/20 18:31 37.0 C 76 18 128/80 94 09/05/20 15:37 78 16 96 09/05/20 14:02 36.5 C 72 18 128/78 95 09/05/20 12:12 83 16 96 09/05/20 11:23 36.6 C 75 16 129/80 96 Laboratory Results Laboratory Results - last 24 hr 09/04/20 09/04/20 09/04/20 20:08 20:08 20:08 WBC RBC Hgb Hct MCV MCH MCHC RDW Std Deviation RDW Coeff of Marcellus Plt Count MPV Immature Gran % (Auto) Neut % (Auto) Lymph % (Auto) Potter % (Auto) Eos % (Auto) Baso % (Auto) Neut # (Auto) Lymph # (Auto) Potter # (Auto) Eos # (Auto) Baso # (Auto) Immature Gran # (Auto) ESR Sodium Potassium Chloride Carbon Dioxide Anion Gap BUN Creatinine Est Cr Clr Drug Dosing Est GFR ( Amer) Est GFR (Non-Af Amer) BUN/Creatinine Ratio Glucose Estimat Average Glucose 131 Hemoglobin A1c 6.2 H Calcium Magnesium 2.1 Ferritin Total Bilirubin AST ALT Alkaline Phosphatase Lactate Dehydrogenase Total Creatine Kinase C-Reactive Protein Total Protein Albumin Globulin Albumin/Globulin Ratio Procalcitonin < 0.05 09/05/20 09/05/20 09/05/20 06:06 06:06 06:06 WBC 7.48 RBC 4.10 L Hgb 13.2 Hct 40.3 MCV 98.3 MCH 32.2 MCHC 32.8 RDW Std Deviation 45.4 RDW Coeff of Marcellus 12.6 Plt Count 228 MPV 10.9 H Immature Gran % (Auto) 0.5 Neut % (Auto) 84.8 Lymph % (Auto) 11.0 Potter % (Auto) 3.6 Eos % (Auto) 0.0 Baso % (Auto) 0.1 Neut # (Auto) 6.34 Lymph # (Auto) 0.82 L Potter # (Auto) 0.27 Eos # (Auto) 0.00 Baso # (Auto) 0.01 Immature Gran # (Auto) 0.04 H ESR 31 H Sodium 139 Potassium 4.0 Chloride 107 Carbon Dioxide 29 Anion Gap 3.0 BUN 10 D Creatinine 0.54 L Est Cr Clr Drug Dosing Not Reportable Est GFR ( Amer) 133.0 Est GFR (Non-Af Amer) 114.8 BUN/Creatinine Ratio 17.6 Glucose 187 H Estimat Average Glucose Hemoglobin A1c Calcium 8.7 Magnesium Ferritin 146.4 Total Bilirubin 0.3 AST 18 ALT 32 Alkaline Phosphatase 47 Lactate Dehydrogenase Total Creatine Kinase 66 C-Reactive Protein 2.58 H Total Protein 6.9 Albumin 3.1 L Globulin 3.7 Albumin/Globulin Ratio 0.8 L Procalcitonin 09/05/20 09/05/20 09/05/20 06:06 06:06 06:06 WBC RBC Hgb Hct MCV MCH MCHC RDW Std Deviation RDW Coeff of Marcellus Plt Count MPV Immature Gran % (Auto) Neut % (Auto) Lymph % (Auto) Potter % (Auto) Eos % (Auto) Baso % (Auto) Neut # (Auto) Lymph # (Auto) Potter # (Auto) Eos # (Auto) Baso # (Auto) Immature Gran # (Auto) ESR Sodium Potassium Chloride Carbon Dioxide Anion Gap BUN Creatinine Est Cr Clr Drug Dosing Est GFR ( Amer) Est GFR (Non-Af Amer) BUN/Creatinine Ratio Glucose Estimat Average Glucose Hemoglobin A1c Calcium Magnesium Ferritin Cancelled Total Bilirubin AST ALT Alkaline Phosphatase Lactate Dehydrogenase 183 Total Creatine Kinase C-Reactive Protein Cancelled Total Protein Albumin Globulin Albumin/Globulin Ratio Procalcitonin < 0.05
[2020-09-05] MEDS: MELATONIN 3 MG TAB PO PRN (21:59)
[2020-09-05] MEDS: diphenhydrAMINE Capsule 25 MG CAP PO PRN (21:59)
[2020-09-06] MEDS: ALBUTEROL HFA 8 GM INHALER INH SCH ×6 (02:13→22:27)
[2020-09-06 05:54] LABS: Basophils # (auto) 0.01 K/uL (0-0.2); Basophils % (auto) 0.1 %; Hemoglobin 12.5 g/dL (12.0-16.0); Immature Granulocytes # (auto) 0.05 K/uL (0.00-0.02); Immature Granulocytes % (auto) 0.5 %; Lymphocytes # (auto) 1.67 K/uL (1.2-3.4); Lymphocytes % (auto) 17.5 %; Mean Corpuscular Hemoglobin 32.3 pg (25-34); Mean Corpuscular Hgb Conc 32.9 g/dL (32-36); Mean Corpuscular Volume 98.2 fL (80-100); Mean Platelet Volume 10.6 fL (7.4-10.4); Monocytes # (auto) 0.85 K/uL (0.11-0.59); Monocytes % (auto) 8.9 %; Neutrophils # (auto) 6.99 K/uL (1.4-6.5); Platelet Count 241 K/uL (130-400); RDW Coefficient of Variation 12.6 % (11.5-14.5); RDW Standard Deviation 45.4 fL (36.4-46.3); Red Blood Count 3.87 M/uL (4.2-5.4); White Blood Count 9.57 K/uL (4.8-10.8)
[2020-09-06 06:28] LABS: Alanine Aminotransferase 30 U/L (12-78); Albumin Level 2.8 gm/dl (3.4-5.0); Aspartate Aminotransferase 14 U/L (15-37); BUN Creatinine Ratio 34.7 (10-20); Bilirubin Direct < 0.1 mg/dl (0-0.2); Blood Urea Nitrogen 18 mg/dl (7-18); Calcium 8.2 mg/dl (8.5-10.1); Carbon Dioxide 28 mmol/L (21-32); Chloride 106 mmol/L (98-107); Est GFR (African American) 133.8; Est GFR (Non-African American) 115.5; Glucose 128 mg/dl (70-99); Potassium 3.8 mmol/L (3.5-5.1); Sodium 138 mmol/L (136-145)
[2020-09-06 06:30] LABS: Alkaline Phosphatase 39 U/L (45-117); Bilirubin,Total 0.3 mg/dl (0.2-1); Total Protein 6.1 gm/dl (6.4-8.2)
[2020-09-06] MEDS: DEXAMETHASONE SOD PHOSPHATE 6 MG in SYRINGE 0 ML IV SCH (08:27)
[2020-09-06] MEDS: guaiFENesin 600 MG TABCR PO SCH ×2 (08:27→20:41)
[2020-09-06] MEDS: FLUTICASONE/VILANTEROL 200/25MCG 14 PUFFS/INHALER INH SCH (08:27)
[2020-09-06] MEDS: ASCORBIC ACID 500 MG TAB PO SCH (08:28)
[2020-09-06] MEDS: PSYLLIUM 58.6% POWDER PACKET PO SCH (08:28)
[2020-09-06] MEDS: ENOXAPARIN INJ 40 MG/0.4 ML SYR SQ SCH (08:29)
[2020-09-06] MEDS: AZITHROMYCIN 250 MG TAB PO SCH (08:29)
[2020-09-06] MEDS: CETIRIZINE HCL 10 MG TABLET PO SCH (08:29)
[2020-09-06] MEDS: REMDESIVIR 100 MG in SODIUM CHLORIDE 0.9% 230 ML IV SCH (11:59)
[2020-09-06] MEDS: SODIUM CHLORIDE 0.9% 10ML FLUSH IV SCH (13:18)
[2020-09-06] MEDS: ZINC SULFATE 220 MG CAPSULE PO SCH (16:20)
[2020-09-06] MEDS: MULTIVITAMIN TAB PO SCH (16:21)
--- NOTE | 2020-09-06 18:57 | Hospitalist Progress Note ---
Date of Service September 06, 2020 Assessment & Plan (1) Pneumonia due to COVID-19 virus: COVID-19 pneumonia, with mild-moderate acute asthma exacerbation --CT chest: 1. No evidence of pulmonary thromboembolic disease. 2. Mild subpleural and bibasilar predominate groundglass opacities are comp atible with an infectious or inflammatory pneumonitis such as viral pneumonia. 3. Prominent left hilar and subcarinal with mildly enlarged right hilar adenopathy, likely reactive. 4. Trace pleural and pericardial effusions. --D-dimer negative ESR 26 CRP 2.5 --Patient symptoms including shortness of breath and cough, malaise has been progressive since onset of symptoms despite outpatient treatment with prednisone and Z-Wayne symptoms has improved markedly resolution of Lymphopenia , normal procalcitonin Currently saturating 95% on room air --Remdesivir day number 2 out of 5 days Continue Decadron day 3 out of 10 Convalescent plasma not offered as patient is now several days since onset of symptoms Lovenox 40 mg subcutaneous for DVT prophylaxis --Albuterol every 4 hours, Breo daily --Incentive spirometry, flutter valve, Mucinex, as needed Tessalon Perles - Constipation --Metamucil, as needed MiraLAX Disposition complete IV Remdesivir X 3 more days anticipate discharge to home when medically stable Admission and Anticipated Discharge Date Admission Date: September 05, 2020 Subjective feeling much better in room air with adequate oxygenation no fever or chills no complain of SOB , independent in room utilizing incentive spirometry minimum cough , able to speak in complete sentence Review of Systems Review of Systems: All systems reviewed & are unremarkable except as noted in HPI & below Constitutional: no fever, no chills and no fatigue Respiratory: + cough; no chest congestion, no dyspnea, no dyspnea on exertion and no wheezing Cardiovascular: no chest pain, no chest pain with activity, no dyspnea, no dyspnea at rest, no dyspnea on exertion and no orthopnea Physical Exam Constitutional: WD/WN, vitals as above no acute distress Eyes: PERRL, conjunctivae normal, anicteric sclerae ENMT: external ear and nose normal, oropharynx normal Neck: trachea midline, no thyromegaly Respiratory: normal respiratory effort; no respiratory distress Auscultation: + diminished lung sounds; no crackles, no rales, no rhonchi and no wheezes Cardiovascular: RRR, no murmur, no edema Gastrointestinal (Abdomen): normal bowel sounds, soft, nontender, no hepatosplenomegaly Musculoskeletal: no cyanosis or clubbing, extremities motor strength 5/5 Skin: no rashes, warm and dry Neurologic: PERRL, EOMI, accommodation nl, no face palsy, no dysarthria Psychiatric: A+Ox3, euthymic affect Results & Data Results & Data ([facility]) Vital Signs (Past 12 Hours) Vital Signs Temp Pulse Pulse Resp BP Pulse Ox 09/06/20 17:09 77 09/06/20 15:13 78 20 95 09/06/20 14:33 37.1 C 78 18 132/80 95 09/06/20 11:29 37.0 C 76 18 127/60 95 09/06/20 11:23 80 20 98 09/06/20 08:35 36.8 C 79 16 143/90 H 96 09/06/20 07:29 68 20 93 09/06/20 07:00 53 L
[2020-09-06] MEDS: MONTELUKAST SODIUM 10 MG TABLET PO SCH (20:41)
[2020-09-06] MEDS: MELATONIN 3 MG TAB PO PRN (20:42)
[2020-09-06] MEDS: BENZONATATE 100 MG CAPSULE PO PRN (20:42)
[2020-09-06] MEDS: diphenhydrAMINE Capsule 25 MG CAP PO PRN (20:42)
[2020-09-07] MEDS: ALBUTEROL HFA 8 GM INHALER INH SCH ×6 (02:17→22:02)
[2020-09-07 06:26] LABS: Basophils # (auto) 0.01 K/uL (0-0.2); Basophils % (auto) 0.1 %; Hematocrit (blood only) 38.1 % (37-47); Hemoglobin 12.5 g/dL (12.0-16.0); Immature Granulocytes # (auto) 0.12 K/uL (0.00-0.02); Immature Granulocytes % (auto) 1.5 %; Lymphocytes % (auto) 25.3 %; Mean Corpuscular Hemoglobin 32.3 pg (25-34); Mean Corpuscular Hgb Conc 32.8 g/dL (32-36); Mean Corpuscular Volume 98.4 fL (80-100); Monocytes # (auto) 0.84 K/uL (0.11-0.59); Monocytes % (auto) 10.6 %; Neutrophils # (auto) 4.95 K/uL (1.4-6.5); Neutrophils % (auto) 62.5 %; Platelet Count 296 K/uL (130-400); RDW Coefficient of Variation 12.6 % (11.5-14.5); RDW Standard Deviation 45.5 fL (36.4-46.3); Red Blood Count 3.87 M/uL (4.2-5.4); White Blood Count 7.92 K/uL (4.8-10.8)
[2020-09-07 06:49] LABS: Alanine Aminotransferase 28 U/L (12-78); Albumin Level 2.7 gm/dl (3.4-5.0); Alkaline Phosphatase 40 U/L (45-117); Aspartate Aminotransferase 13 U/L (15-37); Bilirubin Direct < 0.1 mg/dl (0-0.2); Bilirubin,Total 0.3 mg/dl (0.2-1); Total Protein 5.9 gm/dl (6.4-8.2)
[2020-09-07] MEDS: AZITHROMYCIN 250 MG TAB PO SCH (08:58)
[2020-09-07] MEDS: ASCORBIC ACID 500 MG TAB PO SCH (08:58)
[2020-09-07] MEDS: CETIRIZINE HCL 10 MG TABLET PO SCH (08:58)
[2020-09-07] MEDS: guaiFENesin 600 MG TABCR PO SCH ×2 (08:59→20:26)
[2020-09-07] MEDS: DEXAMETHASONE SOD PHOSPHATE 6 MG in SYRINGE 0 ML IV SCH (08:59)
[2020-09-07] MEDS: FLUTICASONE/VILANTEROL 200/25MCG 14 PUFFS/INHALER INH SCH (09:00)
[2020-09-07] MEDS: PSYLLIUM 58.6% POWDER PACKET PO SCH (09:00)
[2020-09-07] MEDS: ENOXAPARIN INJ 40 MG/0.4 ML SYR SQ SCH (09:00)
[2020-09-07] MEDS: REMDESIVIR 100 MG in SODIUM CHLORIDE 0.9% 230 ML IV SCH (12:10)
[2020-09-07] MEDS: SODIUM CHLORIDE 0.9% 10ML FLUSH IV SCH (13:22)
[2020-09-07] MEDS: BENZONATATE 100 MG CAPSULE PO PRN ×2 (17:24→20:41)
[2020-09-07] MEDS: MULTIVITAMIN TAB PO SCH (17:25)
[2020-09-07] MEDS: ZINC SULFATE 220 MG CAPSULE PO SCH (17:25)
--- NOTE | 2020-09-07 17:57 | Hospitalist Progress Note ---
Date of Service September 07, 2020 Assessment & Plan (1) Pneumonia due to COVID-19 virus: COVID-19 pneumonia, with mild-moderate acute asthma exacerbation --CT chest: 1. No evidence of pulmonary thromboembolic disease. 2. Mild subpleural and bibasilar predominate groundglass opacities are com patible with an infectious or inflammatory pneumonitis such as viral pneumonia. 3. Prominent left hilar and subcarinal with mildly enlarged right hilar adenopathy, likely reactive. 4. Trace pleural and pericardial effusions. --D-dimer negative ESR 26 CRP 2.5 - respiratory symptoms has improved markedly no chest pain or pluritic discomfort resolution of Lymphopenia , normal procalcitonin Discussed with pt regarding trace pericardial effusion noted in CT chest possible due to viral illness Follow up ECHO after completer recovery from COVID 19 /in 4-6 weeks in recommended Currently saturating 95% on room air --Remdesivir day number 3 out of 5 days Continue Decadron day 4 out of 10 Convalescent plasma not offered as patient is now several days since onset of symptoms Lovenox 40 mg subcutaneous for DVT prophylaxis --Albuterol every 4 hours, Breo daily - Constipation --Metamucil, as needed MiraLAX/pt reports of nomral bowel movement Disposition complete IV Remdesivir last day 09/09/20 anticipate discharge to home after completion of IV Remdesivir Admission and Anticipated Discharge Date Admission Date: September 05, 2020 Subjective pt reports of feeling better every day no fever since admission dry non productive cough has improve no wheeze, no LINDSAY in room air utilizing Flutter valve and incentive spirometry Review of Systems Review of Systems: All systems reviewed & are unremarkable except as noted in HPI & below Constitutional: no fever and no chills Respiratory: + cough (improved ); no dyspnea, no dyspnea on exertion and no wheezing Physical Exam Constitutional: WD/WN, vitals as above no acute distress Eyes: PERRL, conjunctivae normal, anicteric sclerae ENMT: external ear and nose normal, oropharynx normal Neck: trachea midline, no thyromegaly Respiratory: normal respiratory effort; no respiratory distress Auscultation: + diminished lung sounds; no crackles, no rales, no rhonchi and no wheezes Cardiovascular: RRR, no murmur, no edema Gastrointestinal (Abdomen): normal bowel sounds, soft, nontender, no hepatosplenomegaly Musculoskeletal: no cyanosis or clubbing, extremities motor strength 5/5 Skin: no rashes, warm and dry Neurologic: PERRL, EOMI, accommodation nl, no face palsy, no dysarthria Psychiatric: A+Ox3, euthymic affect Results & Data Results & Data ([facility]) Vital Signs (Past 12 Hours) Vital Signs Temp Pulse Pulse Resp BP Pulse Ox 09/07/20 15:39 79 09/07/20 15:21 74 16 95 09/07/20 12:12 37.3 C 76 16 141/89 H 95 09/07/20 11:14 72 18 96 09/07/20 10:33 54 L 09/07/20 08:25 74 18 96
[2020-09-07 19:50] LABS: C Reactive Protein 0.66 mg/dl (0-0.29); Troponin I < 0.015 ng/ml (0-0.045)
[2020-09-07] MEDS: MONTELUKAST SODIUM 10 MG TABLET PO SCH (20:27)
[2020-09-07] MEDS: MELATONIN 3 MG TAB PO PRN (20:40)
[2020-09-07] MEDS: diphenhydrAMINE Capsule 25 MG CAP PO PRN (20:41)
[2020-09-08] MEDS: ALBUTEROL HFA 8 GM INHALER INH SCH ×6 (02:21→23:20)
[2020-09-08] MEDS: ASCORBIC ACID 500 MG TAB PO SCH (08:20)
[2020-09-08] MEDS: AZITHROMYCIN 250 MG TAB PO SCH (08:20)
[2020-09-08] MEDS: CETIRIZINE HCL 10 MG TABLET PO SCH (08:21)
[2020-09-08] MEDS: PSYLLIUM 58.6% POWDER PACKET PO SCH (08:21)
[2020-09-08] MEDS: DEXAMETHASONE SOD PHOSPHATE 6 MG in SYRINGE 0 ML IV SCH (08:22)
[2020-09-08] MEDS: guaiFENesin 600 MG TABCR PO SCH ×2 (08:22→21:18)
[2020-09-08] MEDS: FLUTICASONE/VILANTEROL 200/25MCG 14 PUFFS/INHALER INH SCH (08:22)
[2020-09-08] MEDS: ENOXAPARIN INJ 40 MG/0.4 ML SYR SQ SCH (08:24)
--- NOTE | 2020-09-08 09:25 | XRay Report ---
XR chest 1V portable CLINICAL HISTORY: Covid 19 pneumonia COMPARISON STUDY: 09/01/2020 FINDINGS: The cardiac and mediastinal contours are normal. There is no evidence of focal pulmonary co nsolidation. There is no evidence of failure. No pleural effusions are visualized.[ IMPRESSION: No active disease in the chest. ACT 112: Negative or not required by law. Electronically signed by: Remy Kwok M.D. 09/08/2020 9:24 AM
[2020-09-08] MEDS: REMDESIVIR 100 MG in SODIUM CHLORIDE 0.9% 230 ML IV SCH (12:18)
[2020-09-08] MEDS: SODIUM CHLORIDE 0.9% 10ML FLUSH IV SCH (13:37)
[2020-09-08] MEDS: MULTIVITAMIN TAB PO SCH (17:11)
[2020-09-08] MEDS: ZINC SULFATE 220 MG CAPSULE PO SCH (17:12)
--- NOTE | 2020-09-08 18:36 | Hospitalist Progress Note ---
Date of Service September 08, 2020 Assessment & Plan (1) Pneumonia due to COVID-19 virus: COVID-19 pneumonia, with mild-moderate acute asthma exacerbation --CT chest: 1. No evidence of pulmonary thromboembolic disease. 2. Mild subpleural and bibasilar predominate groundglass opacities are com patible with an infectious or inflammatory pneumonitis such as viral pneumonia. 3. Prominent left hilar and subcarinal with mildly enlarged right hilar adenopathy, likely reactive. 4. Trace pleural and pericardial effusions. --D-dimer negative ESR 26 CRP 2.5 -repeat lab shows : improvement of CRP 0.88/ESR 22 - no chest pain or pleuritic discomfort resolution of Lymphopenia , normal procalcitonin Discussed with pt regarding trace pericardial effusion noted in CT chest possible due to viral illness Follow up ECHO after completer recovery from COVID 19 /in 4-6 weeks in recommended no hypoxia or SOB , in room air --Remdesivir day number 4 out of 5 days Continue Decadron day 5 out of 10 Lovenox 40 mg subcutaneous for DVT prophylaxis --cont home meds Albuterol every 4 hours PRN , Breo daily - Constipation --Metamucil, as needed MiraLAX/pt reports of normal bowel movement Disposition complete IV Remdesivir tomorrow discharge to home tomorrow Admission and Anticipated Discharge Date Admission Date: September 05, 2020 Subjective no complain of SOB no cough no fever or chills feels like her baseline Physical Exam Constitutional: WD/WN, vitals as above no acute distress Eyes: PERRL, conjunctivae normal, anicteric sclerae ENMT: external ear and nose normal, oropharynx normal Neck: trachea midline, no thyromegaly Respiratory: normal respiratory effort; no respiratory distress Auscultation: + diminished lung sounds; no crackles, no rales, no rhonchi and no wheezes Cardiovascular: RRR, no murmur, no edema Gastrointestinal (Abdomen): normal bowel sounds, soft, nontender, no hepatosplenomegaly Musculoskeletal: no cyanosis or clubbing, extremities motor strength 5/5 Skin: no rashes, warm and dry Neurologic: PERRL, EOMI, accommodation nl, no face palsy, no dysarthria Psychiatric: A+Ox3, euthymic affect Results & Data Results & Data ([facility]) Vital Signs (Past 12 Hours) Vital Signs Temp Pulse Resp BP Pulse Ox 09/08/20 16:38 100 H 18 98 09/08/20 15:00 37.0 C 76 18 136/82 96 09/08/20 11:14 76 18 96 09/08/20 08:34 36.5 C 90 16 148/90 H 95 09/08/20 07:36 62 16 96
[2020-09-08] MEDS: MONTELUKAST SODIUM 10 MG TABLET PO SCH (21:17)
[2020-09-08] MEDS: BENZONATATE 100 MG CAPSULE PO PRN (21:19)
[2020-09-08] MEDS: MELATONIN 3 MG TAB PO PRN (21:20)
[2020-09-08] MEDS: diphenhydrAMINE Capsule 25 MG CAP PO PRN (22:09)
[2020-09-09] MEDS: ALBUTEROL HFA 8 GM INHALER INH SCH ×3 (01:57→11:24)
[2020-09-09] MEDS: guaiFENesin 600 MG TABCR PO SCH (08:24)
[2020-09-09] MEDS: ASCORBIC ACID 500 MG TAB PO SCH (08:24)
[2020-09-09] MEDS: AZITHROMYCIN 250 MG TAB PO SCH (08:24)
[2020-09-09] MEDS: CETIRIZINE HCL 10 MG TABLET PO SCH (08:24)
[2020-09-09] MEDS: ENOXAPARIN INJ 40 MG/0.4 ML SYR SQ SCH (08:25)
[2020-09-09] MEDS: PSYLLIUM 58.6% POWDER PACKET PO SCH (08:26)
[2020-09-09] MEDS: DEXAMETHASONE SOD PHOSPHATE 6 MG in SYRINGE 0 ML IV SCH (08:26)
[2020-09-09] MEDS: FLUTICASONE/VILANTEROL 200/25MCG 14 PUFFS/INHALER INH SCH (08:28)
[2020-09-09] MEDS: REMDESIVIR 100 MG in SODIUM CHLORIDE 0.9% 230 ML IV SCH (11:52)
[2020-09-09] MEDS: BENZONATATE 100 MG CAPSULE PO PRN (11:56)
[2020-09-09] MEDS: SODIUM CHLORIDE 0.9% 10ML FLUSH IV SCH (13:01)
--- NOTE | 2020-09-09 13:23 | Discharge Summary ---
Date of Service September 09, 2020 Admission HPI Per Admitting Provider History obtained from patient and records. Medical history significant for bronchial asthma. 10 days ago, patient noted dry cough symptoms, shortness of breath, headache, fatigue, loss of taste, and low-grade fever at home symptoms. Physician COVID 19 positive was staying outside their home. Patient's outpatient COVID-19 swab later noted to be positive. Patient requested for [place] and prednisone prescription from PCP for asthma exacerbation. Patient seen at the ER 3 days ago for worsening symptoms. Subsequently sent home. At home, patient noted worsening shortness of breath without chest pain. Incessant cough persistently dry. Patient returned to the ER last night. Currently uncomfortable going home. Medical History as above Surgical History : Dental surgery Family History : Diabetes, asthma Personal/Social history : Non-smoker, occasional EtOH intake, physician Principal Diagnosis Asthma exacerbation Shortness of breath-symptom resolved COVID-19 Discharge Exam Constitutional WD/WN, vitals as above no acute distress Eyes PERRL, conjunctivae normal, anicteric sclerae ENMT external ear and nose normal, oropharynx normal Neck trachea midline, no thyromegaly Respiratory normal respiratory effort; no respiratory distress Auscultation: + diminished lung sounds; no crackles, no rales, no rhonchi and no wheezes Cardiovascular RRR, no murmur, no edema Gastrointestinal (Abdomen) normal bowel sounds, soft, nontender, no hepatosplenomegaly Musculoskeletal no cyanosis or clubbing, extremities motor strength 5/5 Skin no rashes, warm and dry Neurologic PERRL, EOMI, accommodation nl, no face palsy, no dysarthria Psychiatric A+Ox3, euthymic affect Discharge Data Allergies Allergy/AdvReac Type Severity Reaction Status Date / Time shrimp Allergy Rash Unverified 09/04/20 23:31 Ordered Studies 09/04/20 19:47 CT angio chest PE protocol Urgent Hospital Course (1) Pneumonia due to COVID-19 virus: COVID-19 pneumonia, with mild-moderate acute asthma exacerbation --CT chest: 1. No evidence of pulmonary thromboembolic disease. 2. Mild subpleural and bibasilar predominate groundglass opacities are compatible with an infectious or inflammatory pneumonitis such as viral pneumonia. 3. Prominent left hilar and subcarinal with mildly enlarged right hilar adenopathy, likely reactive. 4. Trace pleural and pericardial effusions. --D-dimer negative ESR 26 CRP 2.5 -repeat lab shows : improvement of CRP 0.88/ESR 22 - no chest pain or pleuritic discomfort resolution of Lymphopenia , normal procalcitonin Discussed with pt regarding trace pericardial effusion noted in CT chest possible due to viral illness Follow up ECHO after completer recovery from COVID 19 /in 4-6 weeks in recommended no hypoxia or SOB , in room air --Completed IV remdesivir for total 5 days Received Decadron day 5 out of 10 Will be discharged home today with 5 more days of p.o. 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[facility]) COVID-19 test positive, result updated to patient Total Time Total Time Spent Total Time Spent (In Minutes): 35 minutes Total Time Includes: Discharge Planning and Medication Reconciliation Discharge Plan Discharge Items Patient Disposition: Home - Self-Care Reason For Visit: SOB Discharge Diagnosis: Asthma exacerbation Shortness of breath-symptom resolved COVID-19 Activity: Resume your previous activity Non-emergency contact: Primary Care Provider Call non-emergency contact if: you have any medication questions Follow-up/Referrals: Greta Serrano MD [Primary Care Provider] - 09/14/20 11:20 am (PLEASE NOTE THAT THIS IS A TELEVIDEO APPOINTMENT. PLEASE FOLLOW THE INSTRUCTIONS PROVIDED IN AN EMAIL YOU WILL RECEIVE. IF YOU HAVE ANY QUESTIONS, PLEASE CALL [phone].) Diet: Regular Addtl Attending Provider Instructions: Follow up ECHO after complete recovery from COVID 19 /in 4-6 weeks Home Isolation COVID-19 Instructions The following information about Home Isolation is from the CDC Website: https://www.cdc.gov/coronavirus/2019-ncov/hcp/agjtlbnt-ptmctaa-ckpzfs.html Stay home except to get medical care People who are mildly ill with COVID-19 are able to isolate at home during their illness. You should restrict activities outside your home, except for getting medical care. Do not go to work, school, or public areas. Avoid using public transportation, ride-sharing, or taxis. Separate yourself from other people and animals in your home People: As much as possible, you should stay in a specific room and away from other people in your home. Also, you should use a separate bathroom, if av ailable. Animals: You should restrict contact with pets and other animals while you are sick with COVID-19, just like you would around other people. Although there have not been reports of pets or other animals becoming sick with COVID-19, it is still recommended that people sick with COVID-19 limit contact with animals until more information is known about the virus. When possible, have another member of your household care for your animals while you are sick. If you are sick with COVID-19, avoid contact with your pet, including petting, snuggling, being kissed or licked, and sharing food. If you must care for your pet or be around animals while you are sick, wash your hands before and after you interact with pets and wear a face mask. Call ahead before visiting your doctor If you have a medical appointment, call the healthcare provider and tell them that you have or may have COVID-19. This will help the healthcare providers office take steps to keep other people from getting infected or exposed. Wear a face mask You should wear a face mask when you are around other people (e.g., sharing a room or vehicle) or pets and before you enter a healthcare providers office. If you are not able to wear a face mask (for example, because it causes trouble breathing), then people who live with you should not stay in the same room with you, or they should wear a face mask if they enter your room. Cover your coughs and sneezes Cover your mouth and nose with a tissue when you cough or sneeze. Throw used tissues in a lined trash can. Immediately wash your hands with soap and water for at least 20 seconds or, if soap and water are not available, clean your hands with an alcohol-based hand studio artist that contains at least 60% alcohol. Clean your hands often Wash your hands often with soap and water for at least 20 seconds, especially after blowing your nose, coughing, or sneezing; going to the bathroom; and before eating or preparing food. If soap and water are not readily available, use an alcohol-based hand studio artist with at least 60% alcohol, covering all surfaces of your hands and rubbing them together until they feel dry. Soap and water are the best option if hands are visibly dirty. Avoid touching your eyes, nose, and mouth with unwashed hands. Avoid sharing personal household items You should not share dishes, drinking glasses, cups, eating utensils, towels, or bedding with other people or pets in your home. After using these items, they should be washed thoroughly with soap and water. Clean all high-touch surfaces everyday High touch surfaces include counters, tabletops, doorknobs, bathroom fixtures, toilets, phones, keyboards, tablets, and bedside tables. Also, clean any surfaces that may have blood, stool, or body fluids on them. Use a household cleaning spray or wipe, according to the label instructions. Labels contain instructions for safe and effective use of the cleaning product including precautions you should take when applying the product, such as wearing gloves and making sure you have good ventilation during use of the product. Monitor your symptoms Seek prompt medical attention if your illness is worsening (e.g., difficulty melina athing).Beforeseeking care, call your healthcare provider and tell them that you have, or are being evaluated for, COVID-19. Put on a face mask before you enter the facility. These steps will help the healthcare providers office to keep other people in the office or waiting room from getting infected or exposed. Ask your healthcare provider to call the local or state health department. Persons who are placed under active monitoring or facilitated self- monitoring should follow instructions provided by their local health department or occupational health professionals, as appropriate. When working with your local health department check their available hours. If you have a medical emergency and need to call 911, notify the dispatch personnel that you have, or are being evaluated for COVID-19. If possible, put on a face mask before emergency medical services arrive. Discontinuing home isolation Per current CDC guideline, isolation/quarantine can be discontinued after 14 days of onset of symptoms. Addtl Manager English Provider Instructions: You have 5 more days of steroids/dexamethasone 6 mg daily to complete for COVID- 19 infection Take it with food /can take it in the morning after breakfast to prevent insomnia, anxiety episodes in evening. Can take [id number] as needed melatonin for sleep. Pending Studies at Discharge: No Stand-Alone Forms: My [facility], Smoking Cessation Medications and DC Order Prescriptions: New dexamethasone 6 mg tablet 6 mg PO DAILY 5 Days Qty: 5 RF: 0 Continued acetaminophen [Tylenol Extra Strength] 500 mg Tablet 500 mg PO Q6H PRN (Reason: Pain) RF: 0 cetirizine [Zyrtec] 10 mg Tablet 10 mg PO QAM RF: 0 multivitamin Tablet 1 tab PO QDD RF: 0 ascorbic acid (vitamin C) [Vitamin C] 500 mg Tablet 100 mg PO QDD RF: 0 fluticasone propion-salmeterol [Advair Diskus] 500-50 mcg/dose Blister With Device 1 inh INHALATION BID RF: 0 montelukast [Singulair] 10 mg Tablet 10 mg PO HS RF: 0 zinc 50 mg Tablet 0 mg PO QDD RF: 0 albuterol sulfate 90 mcg/actuation Hfa Aerosol Inhaler 1 inh INHALATION Q4H PRN (Reason: Shortness Of Breath) RF: 0 Discontinued azithromycin 250 mg tablet 250 mg PO .DAILY/UD RF: 0 prednisone 10 mg tablet 0 mg PO .DAILY/UD RF: 0 Discharge Orders: Discharge Order (Routine); Ordered 09/09/20 Ordered By: Lina Jimenez/Other Patient Handouts: A1C Admission Data Admit Date/Time: 09/05/20 21:29 Attending Provider: Lina Brown Admit Provider: Andrade Mendez Primary Care Provider: Greta Serrano Other Providers: Susan Townsend ; Tommy Rose Other Interventions: Discharge Summary Assessment (RN) Last Done: 09/09/20 09:37
--- NOTE | 2020-09-11 06:25 | Electrocardiogram Report ---
Test Reason : Blood Pressure : / mmHG Vent. Rate : 079 BPM Atrial Rate : 079 BPM P-R Int : 174 ms QRS Dur : 090 ms QT Int : 376 ms P-R-T Axes : 057 078 077 degrees QTc Int : 431 ms Normal sinus rhythm Minimal voltage criteria for LVH, may be normal variant Borderline ECG When compared with ECG of 04-SEP-2020 21:23, No significant change was found Confirmed by Shan Cesar ([id number]) on 09/11/2020 6:25:07 AM Referred By: Greta Serrano Confirmed By:Shan Cesar
== END 2020-09-09 14:22 | disposition home or self-care (01) | DRG 177 ==
LOC: ED 17:02 → 2N 17:02 → SUATTDRO 09-05 00:07 → 2N 09-05 02:38 → SUATTDRO 09-05 21:29